=== PATIENT | male | born 1985 | race Caucasian/White ===

== ENCOUNTER → 2020-10-21 | Outpatient (CLI) | payer BC, OTHER | LOC: EMI 15:20 | DX: G93.89 Other specified disorders of brain (principal); G44.89 Other headache syndrome; G43.009 Migraine without aura, not intractable, without status migrainosus | CPT/HCPCS: 70553; A9577 ==

== ENCOUNTER → 2021-04-18 | Outpatient (CLI) | payer BC, OTHER | LOC: SLEEP-COR 10:42 | DX: G47.33 Obstructive sleep apnea (adult) (pediatric) (principal); G93.89 Other specified disorders of brain; G43.009 Migraine without aura, not intractable, without status migrainosus; G44.89 Other headache syndrome; J30.9 Allergic rhinitis, unspecified; I10 Essential (primary) hypertension; E78.00 Pure hypercholesterolemia, unspecified; K21.9 Gastro-esophageal reflux disease without esophagitis; Z00.00 Encounter for general adult medical examination without abnormal findings | CPT/HCPCS: 95810 ==